=== PATIENT | female | born 1970 | race Caucasian/White ===

== ENCOUNTER 2023-01-19 09:39 | Outpatient (CLI) | payer OTHER, SELFPAY ==
--- NOTE | 2023-01-19 11:17 | W.ANESCHARGE ---
Anesthesia Charges Start Date/Time Anesthesia Start Date: 01/19/23 Anesthesia Start Time: 11:15 Stop Date/Time Anesthesia Stop Date: 01/19/23 Anesthesia Stop Time: 11:41
--- NOTE | 2023-01-19 11:44 | W.ANESCHARGE ---
Anesthesia Charges Start Date/Time Anesthesia Start Date: 01/19/23 Anesthesia Start Time: 11:15 Stop Date/Time Anesthesia Stop Date: 01/19/23 Anesthesia Stop Time: 11:41
== END 2023-01-19 09:40 | disposition home or self-care (01) ==
LOC: OP CLINIC 09:42
PROVIDERS: PCP Family Medicine; Visit Provider Internal Medicine Gastroenterology
DX: Z12.11 Encounter for screening for malignant neoplasm of colon (principal)
CPT/HCPCS: 00811; 00812; 45378; J2704

== ENCOUNTER 2023-12-25 13:43 | Emergency (ER) | payer OTHER, SELFPAY ==
[2023-12-25] VITALS (18 sets, daily range): BP systolic 149–191; BP diastolic 87–114; PULSE 80–93; RESP 14–16; TEMP 36.6; O2SAT 88–99; BMI 30.4
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
[2023-12-25 14:28] LABS: Basophils Percent Auto 0.3 % (0.0-3.0); Eosinophils Percent Auto 0.3 % (0.0-7.0); Hematocrit 33.7 % (33.0-51.0); Hemoglobin* 10.5 gm/dL (12.0-16.0); Immature Granulocytes Pct Auto 0.3 %; Lymphocytes Percent Auto 27.5 % (20-44); Mean Corpuscular HGB Conc 31 gm/dL (32-36); Mean Corpuscular Hemoglobin 26 pg (26-34); Mean Corpuscular Volume 84 fL (80-100); Monocytes Percent Auto 8.1 % (0.0-11.0); Neutrophils Percent Auto 63.5 % (42.0-72.0); Platelet Count* 249 K/uL (140-440); RDW Coefficient of Variation % 17.2 % (11.5-15.5); White Blood Count* 3.82 K/uL (4.50-11.00)
[2023-12-25 14:32] LABS: Slide Review Reflex No
[2023-12-25] MEDS: ONDANSETRON 2 MG/ML inj 4 MG IVP (14:32)
[2023-12-25] MEDS: HYDROmorphone 0.5 mg/0.5 ml inj 1 MG IVP (14:32)
[2023-12-25] MEDS: 0.9 % SODIUM CHLORIDE 1000 ml 1,000 ML IV (14:33)
[2023-12-25 14:40] LABS: Troponin, Point-of-Care* 0.01 ng/ml (0.01-0.04)
[2023-12-25 14:41] LABS: Lactate* 0.6 mmol/L (0.5-1.9)
[2023-12-25 14:54] LABS: Ethanol* < 0.01 % (0.01-0.03)
[2023-12-25 15:06] LABS: Chloride* 110 mmol/L (96-114); Potassium* 3.5 mmol/L (3.6-5.1); Sodium* 140 mmol/L (135-149)
[2023-12-25 15:08] LABS: Creatinine* 0.8 mg/dL (0.5-1.5); Est. Creatinine Clearance* 77.27; Estimated Glomerular Filt Rate 87 ml/min
[2023-12-25 15:09] LABS: Anion Gap 6 mEq/L (7-15); Blood Urea Nitrogen* 19 mg/dL (7-30); Carbon Dioxide* 24 mmol/L (20-32); Glucose* 101 mg/dL (60-115)
[2023-12-25] MEDS: HYDROmorphone 0.5 mg/0.5 ml inj IVP (16:13)
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
[2023-12-25] MEDS: TRANEXAMIC ACID 1,000 MG in 0.9 % SODIUM CHLORIDE 100 ml 100 ML 440 MG IVPB (17:35)
[2023-12-25 17:37] LABS: PCR FLU A Negative PCR FLU A (Negative); PCR FLU B Negative PCR FLU B (Negative); PCR RSV Negative PCR RSV (Negative); SARS PCR* Negative SARS-CoV-2 (Negative)
== END 2023-12-25 18:09 | disposition other institution (70) ==
PROVIDERS: Emergency Provider Emergency Medicine; PCP Family Medicine
DX: S09.90XA Unspecified injury of head, initial encounter (principal); R51.9 Headache, unspecified; R07.89 Other chest pain; M54.9 Dorsalgia, unspecified; G89.29 Other chronic pain; V44.5XXA Car driver injured in collision with heavy transport vehicle or bus in traffic accident, initial encounter; Y92.411 Interstate highway as the place of occurrence of the external cause
CPT/HCPCS: 36415; 70450; 71260; 72125; 74177; 76604; 76705; 80048; 82077; 83605; 84484; 85025; 86850; 86900; 86901; 87631; 93005; 93308; 94761; 96365; 96368; 96375; 99284; 99285; J1170; J1953; J2405; J7030; Q9967

== ENCOUNTER 2023-12-25 18:00 | Outpatient (CLI) | payer OTHER, SELFPAY | END 2023-12-25 18:01 | disposition home or self-care (01) | LOC: AMB 12-27 10:03 | PROVIDERS: PCP Family Medicine; Visit Provider Family Medicine | DX: S06.5XAA Traumatic subdural hemorrhage with loss of consciousness status unknown, initial encounter (principal) | CPT/HCPCS: A0425; A0427 ==

== ENCOUNTER 2024-01-14 09:39 | Emergency (ER) | payer OTHER, SELFPAY ==
[2024-01-14 09:44] VITALS: BP 177/108; PULSE 86; RESP 18; TEMP 36.6; O2SAT 95; BMI 29.8
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
[2024-01-14] MEDS: KETOROLAC 30 MG/ML inj IVP (10:13)
[2024-01-14] MEDS: ONDANSETRON 2 MG/ML inj 4 MG IVP (10:16)
[2024-01-14] MEDS: diphenhydrAMINE 50 MG/ML inj IVP (10:18)
[2024-01-14] MEDS: LORazepam 2 MG/ML inj 1 MG IV (11:03)
[2024-01-14] MEDS: LORazepam 1 MG TABLET PO (11:50)
[2024-01-14 11:56] VITALS: BP 138/86; PULSE 76; RESP 16; O2SAT 96
== END 2024-01-14 12:04 | disposition home or self-care (01) ==
PROVIDERS: Emergency Provider Emergency Medicine Emergency Medical Services; PCP Family Medicine
DX: G43.909 Migraine, unspecified, not intractable, without status migrainosus (principal)
CPT/HCPCS: 96374; 96375; 99284; A9270; J1200; J1885; J2060; J2405